=== PATIENT | male | born 1980 | race Caucasian/White ===

== ENCOUNTER 2021-08-13 21:59 | Emergency (ER) | payer OTHER ==
[2021-08-13 22:42] LABS: HEMOGLOBIN 14.9 gm/dl (14.0-17.5); RED BLOOD COUNT 5.03 M/UL (4.20-5.50); WHITE BLOOD COUNT 11.1 K/UL (4.5-11.0)
== END 2021-08-14 04:05 | disposition short-term general hospital (02) ==
LOC: ER1 21:59
PROVIDERS: Student in an Organized Health Care Education/Training Program
DX: S82.144A Nondisplaced bicondylar fracture of right tibia, initial encounter for closed fracture (principal); S92.202A Fracture of unspecified tarsal bone(s) of left foot, initial encounter for closed fracture; S92.002A Unspecified fracture of left calcaneus, initial encounter for closed fracture; V49.9XXA Car occupant (driver) (passenger) injured in unspecified traffic accident, initial encounter
CPT/HCPCS: 27762; 70450; 71045; 72125; 72170; 73130; 73562; 73600; 73610; 73700; 80048; 85025; 90471; 90715; 96374; 96375; 96376; 99285; J1170; J2270; J2405; J2704; J3010